=== PATIENT | male | born 1985 | race Caucasian/White ===

== ENCOUNTER 2018-06-18 04:00 | Emergency (ER) | payer OTHER ==
--- NOTE | 2018-06-18 04:11 | ED Physician Documentation ---
PD HPI ABD PAIN - Stated complaint Stated Complaint: ABDOMINAL,TESTICULAR PAIN - Chief complaint Chief Complaint: Abd Pain - History obtained from History obtained from: Patient - History of Present Illness Timing - onset: Yesterday (approximately 24 hours [employer]) Timing - details: Gradual onset, Still present in ED Quality: Pain Location: Other (across lower abdomen) Radiation: Lower back, Other (bilateral testes) Improved by: Position (lying supine with knees/hips flexed (drawing knees towards chest)) Worsened by: Position (lying supine with knees extended) Associated symptoms: No: Fever, Nausea, Vomiting, Diarrhea, Constipation Similar symptoms before: Has not had sx before Recently seen: Not recently seen Review of Systems Constitutional: reports: Reviewed and negative GI: reports: Abdominal Pain. denies: Nausea, Vomiting, Constipation, Diarrhea : reports: Testicular pain (bilateral, radiating from lower abdomen). denies: Dysuria, Frequency, Discharge Skin: denies: Rash Musculoskeletal: reports: Back pain (radiating from lower abdomen) PD PAST MEDICAL HISTORY - Past Medical History Past Medical History: Yes Cardiovascular: Arrhythmia GI: GERD Psych: ADD/ADHD - Past Surgical History Past Surgical History: Yes /[employer]: Other (vasectomy) Cardiovascular: Other (cardiac ablation x 2) HEENT: Tonsil/Adenoidectomy - Allergies Allergies/Adverse Reactions: Allergies Allergy/AdvReac Type Severity Reaction Status Date / Time No Known Drug Allergies Allergy Verified 06/18/18 04:05 - Living Situation Living Arrangement: reports: At home PD ED PE NORMAL - Vitals Vital signs reviewed: Yes - General General: Alert and oriented X 3, No acute distress, Well developed/nourished - Cardiac Cardiac: RRR, No murmur - Respiratory Respiratory: No respiratory distress, Clear bilaterally - Abdomen Abdomen: Soft, Non distended, Other (mild tenderness across lower abdomen, predominantly left-sided (LLQ)) PD ED PE EXPANDED - Male Male : Normal Exam, Circumcised, Testes descended barbara, Normal lie/cremastaric. No: Discharge, Tenderness Results - Vitals Vitals: Oxygen O2 Source Room air - Labs Labs: Laboratory Tests 06/18/18 06/18/18 06/18/18 04:48 04:48 05:14 WBC 8.5 RBC 5.14 Hgb 16.1 Hct 46.3 MCV 90.2 MCH 31.4 H MCHC 34.8 RDW 13.6 Plt Count 220 MPV 8.2 Neut # (Auto) 6.9 H Lymph # (Auto) 0.8 L [place] # (Auto) 0.7 Eos # (Auto) 0.0 Baso # (Auto) 0.0 Absolute Nucleated RBC 0.02 Nucleated RBC % 0.2 Sodium 133 L Potassium 3.4 L Chloride 100 L Carbon Dioxide 24 Anion Gap 9.0 BUN 7 Creatinine 0.9 Estimated GFR (MDRD) 98 Glucose 109 H Calcium 8.9 Total Bilirubin 0.5 AST 30 ALT 35 Alkaline Phosphatase 139 H Total Protein 8.0 Albumin 4.4 Globulin 3.6 Albumin/Globulin Ratio 1.2 Lipase 42 Urine Color YELLOW Urine Clarity CLEAR Urine pH 6.0 Ur Specific [place] <=1.005 Urine Protein NEGATIVE Urine Glucose (UA) NEGATIVE Urine Ketones NEGATIVE Urine Occult Blood TRACE-INTA Urine Nitrite NEGATIVE Urine Bilirubin NEGATIVE Urine Urobilinogen 0.2 (NORMAL) Ur Leukocyte Esterase NEGATIVE Ur Microscopic Review NOT INDICATED Urine Culture Comments NOT INDICATED - Rads (name of study) CT A/P Radiology: Prelim report reviewed, See rad report PD MEDICAL DECISION MAKING - ED course Complexity details: reviewed results, re-evaluated patient, considered differential, d/w patient - Sepsis Event Vital Signs: Oxygen O2 Source Room air Departure - Departure Disposition: 01 Home, Self Care Clinical Impression: Abdominal pain Condition: Good Instructions: ED Abdominal Pain Unkn Cause Follow-Up: TRELL ARAYA PA-C [Primary Care Provider] - Forms: Activity restrictions Discharge Date/Time: 06/18/18 06:35
[2018-06-18] MEDS ORDERED: IOPAMIDOL-300 100 ML VIAL ONE (04:48)
[2018-06-18 05:00] LABS: BASOPHILS % (AUTO) 0.4 %; EOSINOPHILS % (AUTO) 0.4 %; HGB - HEMOGLOBIN 16.1 g/dL (14.0-18.0); LYMPHOCYTES # (AUTO) 0.8 10^3/uL (1.5-3.5); LYMPHOCYTES % (AUTO) 9.8 %; MEAN CORPUSCULAR HEMOGLOBIN 31.4 pg (27.0-31.0); MEAN CORPUSCULAR HGB CONC 34.8 g/dL (32.0-36.0); MEAN CORPUSCULAR VOLUME 90.2 fL (80.0-94.0); MEAN PLATELET VOLUME 8.2 fL (7.4-11.4); MONOCYTES # (AUTO) 0.7 10^3/uL (0.0-1.0); MONOCYTES % (AUTO) 8.2 %; NEUTROPHILS # (AUTO) 6.9 10^3/uL (1.5-6.6); NEUTROPHILS % (AUTO) 81.2 %; PLT - PLATELET COUNT 220 10^3/uL (130-450); RED BLOOD COUNT 5.14 10^6/uL (4.70-6.10); RED CELL DISTRIBUTION WIDTH 13.6 % (12.0-15.0); WHITE BLOOD COUNT 8.5 x10^3/uL (4.8-10.8)
[2018-06-18] MEDS ORDERED: IOPAMIDOL-300 100 ML VIAL IVP ONE (05:05)
[2018-06-18 05:16] LABS: ALBUMIN 4.4 g/dL (3.2-5.5); ALBUMIN/GLOBULIN RATIO 1.2 (1.0-2.2); BILIRUBIN,TOTAL 0.5 mg/dL (0.2-1.0); CALCIUM 8.9 mg/dL (8.5-10.3); CREATININE 0.9 mg/dL (0.6-1.2)
[2018-06-18 05:19] LABS: BILIRUBIN,URINE NEGATIVE (NEGATIVE); GLUCOSE, URINE (UA) NEGATIVE (NEGATIVE); KETONES,URINE (UA) NEGATIVE (NEGATIVE); LEUKOCYTE ESTERASE, URINE NEGATIVE (NEGATIVE); NITRITE,URINE NEGATIVE (NEGATIVE); OCCULT BLOOD,URINE TRACE-INTA (NEGATIVE); PROTEIN,URINE NEGATIVE (NEGATIVE); UROBILINOGEN,URINE 0.2 (NORMAL) E.U./dL (NORMAL)
[2018-06-18 05:26] LABS: CLARITY,URINE CLEAR (CLEAR)
--- NOTE | 2018-06-18 05:34 | CT Report ---
Reason: LLQ pain Procedure Date: 06/18/2018 Accession Number: [id number] / [id number] Procedure: CT - Abdomen/Pelvis W/ CPT Code: FULL RESULT: EXAM: CT ABDOMEN AND PELVIS EXAM DATE: 06/18/2018 05:18 AM. CLINICAL HISTORY: LLQ pain. COMPARISONS: None. TECHNIQUE: Routine helical CT imaging was performed through the abdomen and pelvis. IV contrast: ISOVUE 300 100mL. Enteric contrast: No. Reconstructions: Coronal and sagittal. In accordance with CT protocol optimization, one or more of the following dose reduction techniques were utilized for this exam: automated exposure control, adjustment of mA and/or KV based on patient size, or use of iterative reconstructive technique. FINDINGS: Lung Bases: No focal consolidation seen. Small hiatal hernia. Liver: Fatty infiltration. Gallbladder/Bile Ducts: Unremarkable. Spleen: Normal. Pancreas: Normal. Adrenal Glands: Normal. Kidneys: Normal. No masses or hydronephrosis. Peritoneal Cavity/Bowel: No bowel obstruction seen. No diverticulitis. No free air or free fluid. Multiple nonspecific normal-sized mesenteric lymph nodes. Appendix appears normal. Pelvic Organs: Normal. The bladder and visualized pelvic organs are within normal limits. Vasculature: No aneurysms or other significant abnormality. Bones: No significant abnormality. Other: None. IMPRESSION: 1. Fatty liver. 2. Small hiatal hernia. 3. Multiple nonspecific normal-sized mesenteric lymph nodes. 4. No diverticulitis or appendicitis. [facility]
[2018-06-18] MEDS ORDERED: KETOROLAC 60 MG/2 ML VIAL IVP STA (05:52)
[2018-06-18 06:36] VITALS: BP 142/88
== END 2018-06-18 06:35 | disposition home or self-care (01) ==
LOC: ED 04:00
DX: R10.32 Left lower quadrant pain (principal); K76.0 Fatty (change of) liver, not elsewhere classified
CPT/HCPCS: 36415; 74177; 80053; 81003; 83690; 85025; 96374; 99282; 99283; Q9967; 81001; 87086

== ENCOUNTER 2019-04-07 07:19 | Emergency (ER) | payer OTHER ==
[2019-04-07] MEDS ORDERED: DEXAMETHASONE 10 MG/ML VIAL PO STA (08:00)
[2019-04-07] MEDS ORDERED: CHERRY SYRUP 10 ML UDC PO ONE (08:00)
--- NOTE | 2019-04-07 08:03 | ED Physician Documentation ---
PD HPI ABD PAIN - Stated complaint Stated Complaint: ABD PX - Chief complaint Chief Complaint: Abd Pain - History obtained from History obtained from: Patient - History of Present Illness Timing - onset: Enter time (1500), Yesterday Timing - duration: Days (1) Timing - details: Abrupt onset, Still present Quality: Sharp, Pain Location: RUQ Radiation: Chest Improved by: Laying still Worsened by: Moving, Breathing, Position Associated symptoms: No: Fever, Nausea, Vomiting, Diarrhea, Constipation, Dizzy Similar symptoms before: Has not had sx before Recently seen: Not recently seen Review of Systems Constitutional: denies: Fever Eyes: denies: Decreased vision Ears: denies: Ear pain Nose: denies: Rhinorrhea / runny nose, Congestion Throat: denies: Sore throat Cardiac: reports: Chest pain / pressure. denies: Palpitations, Pedal edema, Calf pain Respiratory: denies: Dyspnea, Cough, Wheezing GI: reports: Abdominal Pain. denies: Nausea, Vomiting, Constipation, Diarrhea : denies: Dysuria, Frequency Skin: denies: Rash Musculoskeletal: denies: Neck pain, Back pain, Extremity pain PD PAST MEDICAL HISTORY - Past Medical History Cardiovascular: Arrhythmia GI: GERD Psych: ADD/ADHD - Past Surgical History Past Surgical History: Yes /[employer]: Other (vasectomy) Cardiovascular: Other (cardiac ablation x 2) HEENT: Tonsil/Adenoidectomy - Present Medications Home Medications: Ambulatory Orders Medication Instructions Recorded Confirmed Cyclobenzaprine [Flexeril] 10 mg PO TID PRN #20 tablet 04/07/19 Hydrocodone/Acetaminophen 1 - 2 each PO Q6H PRN #14 tablet 04/07/19 [Hydrocodon-Acetaminophen 5-325] - Allergies Allergies/Adverse Reactions: Allergies Allergy/AdvReac Type Severity Reaction Status Date / Time No Known Drug Allergies Allergy Verified 04/07/19 07:25 - Social History Does the pt smoke?: No Smoking Status: Never smoker Does the pt drink ETOH?: No Does the pt have substance abuse?: No - Immunizations Immunizations are current?: Yes - POLST Patient has POLST: No PD ED PE NORMAL - Vitals Vital signs reviewed: Yes (tachy and hypertensive ) - General General: Alert and oriented X 3, No acute distress, Well developed/nourished - HEENT HEENT: Atraumatic, PERRL, EOMI - Neck Neck: Supple, no meningeal sign, No bony TTP - Cardiac Cardiac: RRR, No murmur - Respiratory Respiratory: No respiratory distress, Clear bilaterally - Abdomen Abdomen: Normal bowel sounds, Soft, Non tender, Non distended, No organomegaly - Back Back: No CVA TTP, No spinal TTP - Derm Derm: Normal color, Warm and dry, No rash - Extremities Extremities: No deformity, No edema - Neuro Neuro: Alert and oriented X 3, 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, No motor deficit, No sensory deficit, Normal speech Eye Opening: Spontaneous Motor: Obeys Commands Verbal: Oriented GCS Score: 15 - Psych Psych: Normal mood, Normal affect Results - Vitals Vitals: Vital Signs - 24 hr 04/07/19 07:23 Temperature 36.2 C L Heart Rate 107 H Respiratory 18 Rate Blood Pressure 163/94 H O2 Saturation 100 Oxygen O2 Source Room air - Labs Labs: Laboratory Tests 04/07/19 04/07/19 04/07/19 08:30 08:30 08:30 WBC 7.0 RBC 5.08 Hgb 15.8 Hct 47.2 MCV 92.9 MCH 31.1 H MCHC 33.5 RDW 12.2 Plt Count 325 MPV 9.8 Neut # (Auto) 4.9 Lymph # (Auto) 1.4 L [place] # (Auto) 0.6 Eos # (Auto) 0.1 Baso # (Auto) 0.1 Absolute Nucleated RBC 0.00 Nucleated RBC % 0.0 Sodium 139 Potassium 3.6 Chloride 102 Carbon Dioxide 24 Anion Gap 13.0 BUN 10 Creatinine 0.9 Estimated GFR (MDRD) 97 Glucose 94 Calcium 9.4 Total Bilirubin 0.5 AST 28 ALT 34 Alkaline Phosphatase 145 H Troponin I < 0.04 Total Protein 8.2 Albumin 4.3 Globulin 3.9 Albumin/Globulin Ratio 1.1 Lipase 43 - Rads (name of study) 2 view chest Radiology: Prelim report reviewed, EMP read indepedently, See rad report Procedures - Bedside sono Bedside sono by EMP: With use of bedside ultrasound the gallbladder is imaged there is no obvious stone there is no wall thickening or pericholecystic fluid and the gallbladder is not sonographically tender. The right kidney is imaged there is no evidence of hydronephrosis and the kidney is sonographically nontender. PD MEDICAL DECISION MAKING - ED course Complexity details: reviewed results, re-evaluated patient, considered differential, d/w patient ED course: 33-year-old male with right upper quadrant abdominal pain has pain worse with inspiration and certain positioning and he does not have tenderness to palpation. He has no increase in the pain with compression of the gallbladder. He is comfortable if he is not moving if he is in a certain position or takes a deep breath he has a sharp pain up to a 7. He is administered dexamethasone here in the emergency department without significant change and he has subsequently administered Toradol 60 mg IM. He gives additional history that 3 days ago he did clean his entire house. He spent 6 to 7 hours cleaning. I suspect this is the etiology for his pain which appears to be musculoskeletal in nature. Departure - Departure Disposition: 01 Home, Self Care Clinical Impression: Strain of fascia of abdomen Condition: Stable Instructions: ED Strain Abdominal Muscle Follow-Up: Jason Foss MD [Primary Care Provider] - Prescriptions: Cyclobenzaprine [Flexeril] 10 mg PO TID PRN #20 tablet PRN Reason: Spasms Hydrocodone/Acetaminophen [Hydrocodon-Acetaminophen 5-325] 1 - 2 each PO Q6H PRN #14 tablet PRN Reason: pain Forms: Activity restrictions
--- NOTE | 2019-04-07 08:40 | XRAY Report ---
Reason: R pleuritic pain Procedure Date: 04/07/2019 Accession Number: [id number] / [id number] Procedure: XR - Chest 2 View X-Ray CPT Code: 76816 FULL RESULT: EXAM: CHEST RADIOGRAPHY EXAM DATE: 04/07/2019 08:22 AM. CLINICAL HISTORY: R pleuritic pain. COMPARISON: ABDOMEN/PELVIS W/ 06/18/2018 5:06 AM. TECHNIQUE: 2 views. FINDINGS: Lungs/Pleura: No focal opacities evident. No pleural effusion. No pneumothorax. Normal volumes. Mediastinum: Heart and mediastinal contours are unremarkable. Other: None. IMPRESSION: Normal 2-view chest radiography. [facility]
[2019-04-07 08:48] LABS: BASOPHILS # (AUTO) 0.1 10^3/uL (0.0-0.1); BASOPHILS % (AUTO) 0.9 %; EOSINOPHILS # (AUTO) 0.1 10^3/uL (0.0-0.7); EOSINOPHILS % (AUTO) 0.7 %; HGB - HEMOGLOBIN 15.8 g/dL (14.0-18.0); LYMPHOCYTES # (AUTO) 1.4 10^3/uL (1.5-3.5); LYMPHOCYTES % (AUTO) 19.6 %; MEAN CORPUSCULAR HEMOGLOBIN 31.1 pg (27.0-31.0); MEAN CORPUSCULAR HGB CONC 33.5 g/dL (32.0-36.0); MEAN CORPUSCULAR VOLUME 92.9 fL (80.0-94.0); MEAN PLATELET VOLUME 9.8 fL (7.4-11.4); MONOCYTES # (AUTO) 0.6 10^3/uL (0.0-1.0); MONOCYTES % (AUTO) 8.3 %; NEUTROPHILS # (AUTO) 4.9 10^3/uL (1.5-6.6); NEUTROPHILS % (AUTO) 69.6 %; PLT - PLATELET COUNT 325 10^3/uL (130-450); RED BLOOD COUNT 5.08 10^6/uL (4.70-6.10); RED CELL DISTRIBUTION WIDTH 12.2 % (12.0-15.0)
[2019-04-07 08:59] LABS: ALBUMIN 4.3 g/dL (3.2-5.5); ALBUMIN/GLOBULIN RATIO 1.1 (1.0-2.2); BILIRUBIN,TOTAL 0.5 mg/dL (0.2-1.0); CALCIUM 9.4 mg/dL (8.5-10.3); CREATININE 0.9 mg/dL (0.6-1.2); TOTAL PROTEIN 8.2 g/dL (6.7-8.2)
[2019-04-07] MEDS ORDERED: KETOROLAC 60 MG/2 ML VIAL IM STA (09:33)
[2019-04-07 10:13] VITALS: BP 144/93
== END 2019-04-07 10:12 | disposition home or self-care (01) ==
LOC: ED 07:19
DX: S39.011A Strain of muscle, fascia and tendon of abdomen, initial encounter (principal); X50.9XXA Other and unspecified overexertion or strenuous movements or postures, initial encounter; Y93.E9 Activity, other interior property and clothing maintenance; Y92.009 Unspecified place in unspecified non-institutional (private) residence as the place of occurrence of the external cause
CPT/HCPCS: 36415; 71046; 80053; 83690; 84484; 85025; 96372; 99283; 99284; A9270